=== PATIENT | male | born 1955 | race Hispanic/Latino ===

== ENCOUNTER 2017-05-26 10:16 | Outpatient (CLI) | payer MEDICARE, OTHER ==
[2017-05-26 11:33] LABS: Blood Urea Nitrogen 13 mg/dL (9-20)
[2017-05-26] MEDS ORDERED: NACL ONE (11:43)
--- NOTE | 2017-05-26 12:56 | Cat Scan Report ---
CTA CHEST INDICATION: Aortic root dilation, bicuspid aortic valve. COMPARISON: None similar at this institution. FINDINGS: Chest CTA performed following intravenous administration of 100 cc of Omnipaque 350. Rotational MIP's also obtained. Mild cardiomegaly with silhouette exaggerated due to prominent pericardial fat pad. No aortic dissection. Aortic root approximately 4.3 cm AP caliber, axial image 124, series 2, though rapidly attaining a more normal AP caliber of 3.5 cm AP as on axial image 111. No suspicious pulmonary arterial filling defects. No effusions or size significant adenopathy. Patent central airway. Normal thyroid. Slight increased AP chest diameter, minimal right middle lobe and lingular scarring with slight bronchiectasis and a 6 mm right lower lobe pneumatocele. Mild nonspecific distal esophageal wall prominence/thickening, not excluded for gastroesophageal reflux and/or hiatal hernia, amongst others. No significant abnormality in the imaged upper abdomen. Mild mid to lower thoracic spine degenerative changes. CONCLUSION: 1. Cardiomegaly and mildly dilated/aneurysmal aortic root, though remainder thoracic aorta non-aneurysmal, as described. 2. Few other incidental findings, as above. Thank you for the opportunity to participate in this patient's care.
== END 2017-05-26 10:17 | disposition home or self-care (01) ==
LOC: CT 10:16
PROVIDERS: ATTEND Internal Medicine Cardiovascular Disease
DX: I51.7 Cardiomegaly (principal); I77.810 Thoracic aortic ectasia; Q23.1 Congenital insufficiency of aortic valve; J98.4 Other disorders of lung; J47.9 Bronchiectasis, uncomplicated; M47.894 Other spondylosis, thoracic region
CPT/HCPCS: 36415; 71275; 82565; 84520; Q9967